=== PATIENT | female | born 2000 | race American Indian/Alaskan Native ===

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

== ENCOUNTER 2019-05-06 13:01 | Emergency (ER) | payer MEDICAID, OTHER ==
[2019-05-06 13:21] VITALS: BP 137/69; PULSE 73
[2019-05-06] MEDS ORDERED: Lidocaine 4% Top Soln 50 ML Bottle TOP ONE (13:52)
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
== END 2019-05-06 14:14 | disposition home or self-care (01) ==
LOC: JP.ED 13:01
DX: K12.0 Recurrent oral aphthae (principal); F17.210 Nicotine dependence, cigarettes, uncomplicated
CPT/HCPCS: 99283

== ENCOUNTER 2021-01-29 11:04 | Emergency (ER) | payer MEDICAID, OTHER ==
[2021-01-29 11:11] VITALS: BP 109/64; PULSE 89
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
== END 2021-01-29 16:27 | disposition home or self-care (01) ==
LOC: JP.ED 11:04
DX: Z00.8 Encounter for other general examination (principal); Z72.0 Tobacco use
CPT/HCPCS: 36415; 80048; 99284-25